=== PATIENT | female | born 1965 | race Two or more races ===

== ENCOUNTER 2020-06-11 09:30 | Inpatient (IN) | payer OTHER ==
[~2020-06-11] VITALS: Ht 149.9 cm; Wt 77.1 kg
[2020-06-11] MEDS ORDERED: GLIPIZIDE XL10 MG PO (14:27)
[2020-06-11] MEDS ORDERED: LIPITOR20 MG PO (14:28)
[2020-06-11] MEDS ORDERED: METFORMIN HCL1000 M2 PO (14:28)
[2020-06-11] MEDS ORDERED: COZAAR25 MG PO (14:28)
[2020-06-11] MEDS ORDERED: LEVOTHYROXINE25 MCG PO (14:28)
[2020-06-11] MEDS ORDERED: NITROGLYCERIN0.4 MG SL (14:29)
[2020-06-11] MEDS ORDERED: TOPROL XL25 M1 PO (14:29)
[2020-06-11] MEDS ORDERED: ISOSORBIDE DINI30 MG PO (14:29)
[2020-06-18] MEDS ORDERED: RESTORIL30 MG (07:51)
[2020-06-18] MEDS ORDERED: LORAZEPAM1 MG (07:52)
[2020-06-18] MEDS ORDERED: TRAZODONE HCL50 MG (07:52)
[2020-06-18] MEDS ORDERED: ISOSORBIDE MONO30 M2 (07:52)
[2020-06-18] MEDS ORDERED: MONTELUKAST SOD10 MG (07:53)
[2020-06-18] MEDS ORDERED: BUDESONIDE-FO10.2 G1 (07:53)
== END 2020-06-20 10:24 | disposition home or self-care (01) | DRG 331 ==
LOC: O/R 06-18 04:58 → SURG 06-18 04:58 → SURH 06-18 09:30 → SURG 06-18 13:18
PROVIDERS: ADMIT Colon & Rectal Surgery; ATTEND Colon & Rectal Surgery
PROC: 0DTN4ZZ Resection of Sigmoid Colon, Percutaneous Endoscopic Approach (ICD-10-PCS; principal; 2020-06-18 14:45)
DX: C18.7 Malignant neoplasm of sigmoid colon (principal); E11.69 Type 2 diabetes mellitus with other specified complication; E66.9 Obesity, unspecified; E03.9 Hypothyroidism, unspecified; K21.9 Gastro-esophageal reflux disease without esophagitis; I10 Essential (primary) hypertension; I25.10 Atherosclerotic heart disease of native coronary artery without angina pectoris; J45.20 Mild intermittent asthma, uncomplicated

== ENCOUNTER 2020-07-17 05:35 | Day surgery (SDC) | payer OTHER ==
[~2020-07-17 05:35] MED LIST: BUDESONIDE-FO10.2 G1; COZAAR25 MG PO; GLIPIZIDE XL10 MG PO; ISOSORBIDE DINI30 MG PO; ISOSORBIDE MONO30 M2; LEVOTHYROXINE25 MCG PO; LIPITOR20 MG PO; LORAZEPAM1 MG; METFORMIN HCL1000 M2 PO; MONTELUKAST SOD10 MG; NITROGLYCERIN0.4 MG SL; RESTORIL30 MG; TOPROL XL25 M1 PO; TRAZODONE HCL50 MG
== END 2020-07-17 10:50 | disposition home or self-care (01) ==
LOC: CIR.AMB 05:35
PROVIDERS: ATTEND Colon & Rectal Surgery
DX: C19 Malignant neoplasm of rectosigmoid junction (principal); Z20.822 Contact with and (suspected) exposure to COVID-19
CPT/HCPCS: 36561; C1751

== ENCOUNTER 2020-12-02 19:41 | Emergency (ER) | payer OTHER ==
[~2020-12-02] VITALS: Ht 149.9 cm; Wt 70.8 kg
== END 2020-12-03 00:04 | disposition home or self-care (01) ==
LOC: ER 19:41
DX: S20.223A Contusion of bilateral back wall of thorax, initial encounter (principal); W11.XXXA Fall on and from ladder, initial encounter; Y93.89 Activity, other specified; Y92.018 Other place in single-family (private) house as the place of occurrence of the external cause; Y99.8 Other external cause status

== ENCOUNTER 2021-11-09 15:36 | Emergency (ER) | payer OTHER ==
[~2021-11-09] VITALS: Ht 149.9 cm; Wt 62.6 kg
== END 2021-11-09 23:28 | disposition home or self-care (01) ==
LOC: ER 15:36
DX: D49.0 Neoplasm of unspecified behavior of digestive system (principal); Z85.038 Personal history of other malignant neoplasm of large intestine; I10 Essential (primary) hypertension; E11.9 Type 2 diabetes mellitus without complications; Z79.84 Long term (current) use of oral hypoglycemic drugs; E03.9 Hypothyroidism, unspecified